=== PATIENT | female | born 1945 | race Caucasian/White ===

== ENCOUNTER 2021-10-02 07:38 | Day surgery (SDC) | payer OTHER ==
[~2021-10-02] VITALS: Ht 162.6 cm; Wt 50.8 kg
[~2021-10-02 07:38] MED LIST: ANORO ELLIPTA1 EACH INH; BUSPIRONE HCL15 MG PO; CYANOCOBAL1000 MCG/1 IM; DILTIAZEM HCL30 MG PO; DONEPEZIL HCL 55 M1 PO; OMEPRAZOLE 20 M20 M1 PO; OXYCODONE HCL10 MG PO; PREGABALIN75 MG PO; PROZAC 10 MG CA10 MG PO; QUETIAPINE FUMA25 MG PO; SEROQUEL 100 M100 MG PO; TIZANIDINE HCL4 M2 PO
== END 2021-10-02 10:20 | disposition home or self-care (01) ==
LOC: EDSEX → OR 07:38 → TBA 07:50 → OR 09:54
PROVIDERS: ATTEND Ophthalmology
DX: H02.532 Eyelid retraction right lower eyelid (principal); H02.102 Unspecified ectropion of right lower eyelid; H02.202 Unspecified lagophthalmos right lower eyelid; H18.9 Unspecified disorder of cornea; I10 Essential (primary) hypertension; J43.9 Emphysema, unspecified; F32.9 Major depressive disorder, single episode, unspecified; F41.9 Anxiety disorder, unspecified; K21.9 Gastro-esophageal reflux disease without esophagitis; Z98.890 Other specified postprocedural states; Z79.899 Other long term (current) drug therapy; Z20.822 Contact with and (suspected) exposure to COVID-19; Z85.828 Personal history of other malignant neoplasm of skin; Z87.891 Personal history of nicotine dependence; Z90.710 Acquired absence of both cervix and uterus; Z90.49 Acquired absence of other specified parts of digestive tract; Z98.41 Cataract extraction status, right eye; Z98.42 Cataract extraction status, left eye
CPT/HCPCS: 50010; 50101; 50386; 50398; 51636; 56527; 56528; 56531; 62110; 62850; 70005

== ENCOUNTER → 2022-01-01 | Day surgery (SDC) | payer OTHER ==
[~2022-01-01] VITALS: Ht 162.6 cm; Wt 42.6 kg
[~2022-01-01] MED LIST changes: +REMERON 30 MG T30 M1 PO; +STIOLTO RESPIMAT4 GM INH
--- NOTE | ~2022-01-01 | O ---
[facility] [address] OPERATIVE REPORT Name: JENNIFER ANDREWS Room #: REG [facility]#: [id number] Admission: 01/01/22 Attend Phys: Lucian Ballard MD Discharge: Date of : 43 Report #: [id number] THIS REPORT FOR: cc: Cade Lam Bradley Dean DO White, William L. MD ~ cc: Cade Lam DO, Stephen U. Stechschulte, MD DATE OF SERVICE: 01/01/2022 PREOPERATIVE DIAGNOSES: Left lower lid retraction with lagophthalmos, ectropion and progressive keratopathy. POSTOPERATIVE DIAGNOSES: Left lower lid retraction with lagophthalmos, ectropion and progressive keratopathy. PROCEDURES: Left transconjunctival lower lid and cheek lift with left permanent lateral tarsorrhaphy. SURGEON: Lucian Ballard MD RECEIVING MANAGER: None. ANESTHESIA: MAC. COMPLICATIONS: None. 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 She presents today for an attempted procedure to preserve her left ocular surface and improve her level of comfort reducing the risk of loss of her eye. Informed consent was obtained to include but not limited to the potential risk for loss of vision, bleeding, infection, failure to improve the problem, and the potential need for further surgery or treatment. DESCRIPTION OF PROCEDURE: The patient was taken to the operating room where 2% Xylocaine with epinephrine mixed with 0.75% Marcaine with Wydase was administered transconjunctivally and transcutaneously to the left lower lid, the left upper lid, the left cheek and the left infratemporal fossa. The patient was subsequently prepped and draped in the usual sterile fashion. A transconjunctival incision was then made below the inferior border of the tarsal plate and hemostasis was re-achieved. The dissection was then carried out primarily using sharp techniques into the premalar space of the lower lid and cheek. Hemostasis was re-achieved. The lower lid and cheek tissues were then [facility] [address] [place] [address] OPERATIVE REPORT Name: DARRYLJENNIFER Room #: REG [facility] M..#: [id number] Admission: 01/01/22 Attend Phys: Lucian Ballard MD Discharge: Date of : 43 Report #: [id number] elevated and resuspended with interrupted mattress 6-0 Vicryl sutures. The lower lid and cheek elevated well. The lid margin was denuded over the lateral one-third of the upper and lower lid central to the cilia. This tissue was removed en-bloc through the lateral canthus. Hemostasis was then re-achieved. Pretarsal incisions were then made in the upper and lower lid 2-3 mm back from the lid margin. Hemostasis was once more re-achieved. A [id number] extensive lateral tarsorrhaphy was then accomplished with interrupted serpentine 6-0 Vicryl sutures. The extensive tarsorrhaphy was well accomplished. The incisions in the anterior lamella were then closed with interrupted 6-0 plain gut sutures. The wounds were then cleaned and dressed with erythromycin ophthalmic ointment. The patient subsequently transported to the recovery area having tolerated the procedure well with no anesthetic or operative complications being noted. By: [id number] Lucian Ballard MD /nt
[2022-01-01 09:30] VITALS: BP 121/69
== END | disposition home or self-care (01) ==
LOC: OR 07:20
PROVIDERS: ATTEND Ophthalmology
DX: H02.535 Eyelid retraction left lower eyelid (principal); H02.205 Unspecified lagophthalmos left lower eyelid; H02.105 Unspecified ectropion of left lower eyelid; H18.9 Unspecified disorder of cornea; I10 Essential (primary) hypertension; J43.9 Emphysema, unspecified; F32.9 Major depressive disorder, single episode, unspecified; F41.9 Anxiety disorder, unspecified; F03.90 Unspecified dementia, unspecified severity, without behavioral disturbance, psychotic disturbance, mood disturbance, and anxiety; K21.9 Gastro-esophageal reflux disease without esophagitis; Z98.890 Other specified postprocedural states; Z79.899 Other long term (current) drug therapy; Z85.820 Personal history of malignant melanoma of skin; Z85.828 Personal history of other malignant neoplasm of skin; Z98.41 Cataract extraction status, right eye; Z98.42 Cataract extraction status, left eye; Z90.710 Acquired absence of both cervix and uterus; Z90.49 Acquired absence of other specified parts of digestive tract
CPT/HCPCS: 50010; 50101; 50386; 50398; 51636; 56528; 56531; 62110; 62850; 70005